=== PATIENT | male | born 1950 | race Caucasian/White ===

== ENCOUNTER 2016-07-13 14:35 | Emergency (ER) | payer SELFPAY ==
[2016-07-13 15:05] VITALS: RESP 18; TEMP 98.2; O2SAT 100
--- NOTE | 2016-07-13 16:35 | ED PDOC ---
Arrival/HPI - General Chief Complaint: Finger,Hand,&Wrist Time Seen by Provider: 07/13/16 15:05 Historian: Patient - History of Present Illness Narrative History of Present Illness (Text): 07/13/16 16:32 66 year old male who denies past medical history presents to the emergency department with right hand swelling for the past 2 weeks. Patient states that 2 weeks ago he may have injured his right hand. Since then he states he has been lifting, but noticed swelling to the 2nd digit, dorsal part of hand. He also reports difficulty bending his 2nd digit. Denies numbness/tingling. He states he does not recall getting bit by an insect. Patient reports he was concerned for infection so took Amoxicillin for 3 days which he got at a local store. No fever. Patient states he does not drink alcohol regularly and denies being intoxicated when this happened. PMD: None Time/Duration: > week (x 2 weeks) Symptom Onset: Gradual Symptom Course: Unchanged Associated Symptoms (Text): None Past Medical History - Provider Review Nursing Documentation Reviewed: Yes - Cardiac Hx Hypertension: Yes - Psychiatric Hx Psychophysiologic Disorder: No Hx Substance Use: No - Anesthesia Hx Anesthesia: No Hx Anesthesia Reactions: No Hx Malignant Hyperthermia: No Family/Social History - Physician Review Nursing Documentation Reviewed: Yes Family/Social History: Unknown Family HX Smoking Status: Never Smoked Hx Alcohol Use: Yes Frequency of alcohol use: Socially Hx Substance Use: No Allergies/Home Meds Allergies/Adverse Reactions: Allergies No Known Allergies Allergy (Verified 07/13/16 15:20) Review of Systems - Physician Review All systems were reviewed & negative as marked: Yes - Review of Systems Constitutional: absent: Fevers Musculoskeletal: Other (Right hand swelling) Neurological: Other (No numbness/tingling) Physical Exam Vital Signs Reviewed: Yes Vital Signs Temp Pulse Resp BP Pulse Ox 07/13/16 16:40 79 18 138/79 100 07/13/16 15:05 98.2 F 82 18 142/81 100 Temperature: Afebrile Blood Pressure: Normal Pulse: Regular Respiratory Rate: Normal Appearance: Positive for: Well-Appearing, Non-Toxic, Comfortable Pain Distress: None Mental Status: Positive for: Alert and Oriented X 3 - Systems Exam Head: Present: Atraumatic, Normocephalic Pupils: Present: PERRL Conjunctiva: Present: Normal Neck: Present: Normal Range of Motion Upper Extremity: Present: Tenderness (on MCP. No tenderness to finger.), Swelling (on dorsal part of right hand and 2nd digit. ), Other (Decreased ROM on right 2nd digit. Full ROM of the wrist. No tenderness of the right wrist. Not warm. ) Neurological: Present: GCS=15, CN II-XII Intact, Speech Normal Skin: Present: Warm, Dry, Normal Color. No: Rashes Psychiatric: Present: Alert, Oriented x 3, Normal Insight, Normal Concentration Medical Decision Making ED Course and Treatment: Impression: 66 year old male presents with right hand swelling for the past 2 weeks Differential Diagnosis include but are not limited to: Hand injury r/o fracture , less likely cellulitis Plan: -- XR right hand -- Motrin -- Reassess and disposition Progress Notes: 07/13/16 16:38 X-ray of the right hand read by me is negative for fracture. Will splint and discharge patient to follow up with orthopedist Dr. Escobar Patient in agreement with plan to discharged home. Patient is stable for discharge. Patient was instructed to follow up with physician/clinic in 1-2 days or return if symptoms worsen or new concerning symptoms arise. - RAD Interpretation Radiology Orders: 07/13/16 15:49 HAND RIGHT 3 VIEWS [RAD] Stat - Medication Orders Current Medication Orders: Discontinued Medications Ibuprofen (Motrin Tab) 600 mg PO STAT STA Stop: 07/13/16 15:50 Last Admin: 07/13/16 16:20 Dose: 600 mg - Scribe Statement The provider has reviewed the documentation as recorded by the Annalisa Sánchez Provider Scribe Attestation: All medical record entries made by the Annalisa were at my direction and personally dictated by me. I have reviewed the chart and agree that the record accurately reflects my personal performance of the history, physical exam, medical decision making, and the department course for this patient. I have also personally directed, reviewed, and agree with the discharge instructions and disposition. Disposition/Present on Arrival - Present on Arrival Any Indicators Present on Arrival: No History of DVT/PE: No History of Uncontrolled Diabetes: No Urinary Catheter: No History of Decub. Ulcer: No History Surgical Site Infection Following: None - Disposition Have Diagnosis and Disposition been Completed?: Yes Diagnosis: Hand injury Disposition: HOME/ ROUTINE Disposition Time: 16:41 Patient Plan: Discharge Patient Problems: Current Active Problems Problem Status Onset Hand injury Acute Condition: STABLE Discharge Instructions (ExitCare): Finger Sprain (ED) Additional Instructions: Mr Redding, thank you for letting us take care of you today. Your provider was Dr. Mortensen. You were treated for Hand Injury, Finger Injury. The emergency medical care you received today was directed at your acute symptoms. If you were prescribed any medication, please fill it and take as directed. It may take several days for your symptoms to resolve. Return to the Emergency Department if your symptoms worsen, do not improve, or if you have any other problems. Please contact your doctor or call one of the physicians/clinics you have been referred to that are listed on the Patient Visit Information form that is included in your discharge packet. Bring any paperwork you were given at discharge with you along with any medications you are taking to your follow up visit. Our treatment cannot replace ongoing medical care by a primary care provider (PCP) outside of the emergency department. Thank you for allowing the [facility] team to be part of your care today. If you had an X-Ray or CT scan: A Radiologist will review the ED reading if any change in treatment is needed we will contact you. If you had a blood, urine, or wound culture: It will take several days for the results, if any change in treatment is needed we will contact you. If you had an STI test: It will take 48 hours for the results. Please call after 1 week if you have not heard back. Prescriptions: Ibuprofen [Motrin] 600 mg PO Q6 PRN #30 tab PRN Reason: Pain, Moderate (4-7) Ref[place]: [facility] [place] - Follow up with primary Brent Mehta MD [Staff Provider] - Follow up with primary Forms: WORK NOTE
[2016-07-13 16:41] VITALS: BP 138/79; PULSE 79
--- NOTE | 2016-07-13 17:11 | RAD ---
PROCEDURE: Right Hand Radiographs. HISTORY: hand swelling r/o fx COMPARISON: None. FINDINGS: BONES: No evidence of fracture. JOINTS: No articular erosions. There is mild anterior subluxation at the 2nd MCP articulation. Uncertain significance. There is apparent surrounding soft tissue swelling suggesting that this may represent an acute injury. SOFT TISSUES: As above OTHER FINDINGS: None. IMPRESSION: Subluxation at 2nd MCP with adjacent soft tissue swelling suggesting possible acute injury. No acute fracture.
== END 2016-07-13 17:25 | disposition home or self-care (01) ==
LOC: ED 14:35
DX: S63.210A Subluxation of metacarpophalangeal joint of right index finger, initial encounter (principal); X58.XXXA Exposure to other specified factors, initial encounter; Y92.89 Other specified places as the place of occurrence of the external cause; Y99.8 Other external cause status